=== PATIENT | male | born 1980 | race Caucasian/White ===

== ENCOUNTER 2019-03-25 13:40 | Emergency (ER) | payer OTHER ==
[2019-03-25] MEDS: OXYCODONE/ACETAMINOPHEN (5/325) TAB PO (14:26)
[2019-03-25] MEDS: KETOROLAC 60 MG INJ IM (14:26)
== END 2019-03-25 16:38 | disposition home or self-care (01) ==
LOC: FTE 13:40
DX: S89.91XA Unspecified injury of right lower leg, initial encounter (principal); S89.92XA Unspecified injury of left lower leg, initial encounter; M54.32 Sciatica, left side; V49.9XXA Car occupant (driver) (passenger) injured in unspecified traffic accident, initial encounter
CPT/HCPCS: 72100; 73562; 73610; 96372; 99284-25

== ENCOUNTER 2019-06-15 12:53 | Emergency (ER) | payer OTHER ==
[2019-06-15] MEDS: KETOROLAC 60 MG INJ IM (15:39)
[2019-06-15] MEDS: METHYLPREDNISOLONE 125 MG INJ IM (15:39)
[2019-06-15] MEDS: METHOCARBAMOL 500 MG TAB PO (15:51)
== END 2019-06-15 15:59 | disposition home or self-care (01) ==
LOC: FTE 12:53
DX: M54.32 Sciatica, left side (principal)
CPT/HCPCS: 96372; 99284-25

== ENCOUNTER 2019-07-15 09:01 | Emergency (ER) | payer OTHER ==
[2019-07-15] MEDS: OXYCODONE/ACETAMINOPHEN (5/325) TAB PO (10:26)
[2019-07-15] MEDS: KETOROLAC 30 MG INJ IM (10:27)
== END 2019-07-15 10:43 | disposition home or self-care (01) ==
LOC: FTE 09:01
DX: M54.31 Sciatica, right side (principal); I10 Essential (primary) hypertension; F17.210 Nicotine dependence, cigarettes, uncomplicated
CPT/HCPCS: 96372; 99284-25